=== PATIENT | female | born 1960 | race Caucasian/White ===

== ENCOUNTER 2018-02-17 08:35 | Day surgery (SDC) | payer OTHER ==
[~2018-02-17 08:35] MED LIST: INTESTINEX1 CA1 PO; SEPTRA DS TABLE1 TAB PO; ULTRACET PO
== END 2018-02-17 14:45 | disposition home or self-care (01) ==
LOC: AMB-ENDOS 08:35
DX: D13.1 Benign neoplasm of stomach (principal); D13.2 Benign neoplasm of duodenum; K64.8 Other hemorrhoids

== ENCOUNTER 2019-03-02 08:45 | Day surgery (SDC) | payer OTHER | END 2019-03-02 13:45 | disposition home or self-care (01) | LOC: AMB-ENDOS 08:45 | DX: K57.30 Diverticulosis of large intestine without perforation or abscess without bleeding (principal); K64.8 Other hemorrhoids ==

== ENCOUNTER 2020-03-11 07:00 | Day surgery (SDC) | payer OTHER | END 2020-03-11 15:45 | disposition home or self-care (01) | LOC: AMB-ENDOS 07:00 | PROVIDERS: ATTEND Surgery | DX: K62.89 Other specified diseases of anus and rectum (principal); Z20.828 Contact with and (suspected) exposure to other viral communicable diseases; K64.8 Other hemorrhoids ==